=== PATIENT | male | born 1970 | race Caucasian/White ===

== ENCOUNTER 2020-06-03 09:49 | Emergency (ER) | payer BC, SELFPAY ==
--- NOTE | ~2020-06-03 | XR_ITS ---
EXAMINATION: XR chest 1V portable DATE: 06/03/2020 10:50 INDICATION: Cough. TECHNIQUE: A single frontal view of the chest was obtained on 2 radiographs. COMPARISON: None. FINDINGS: The chest demonstrates clear lungs without pneumonia, pleural effusion, or pneumothorax. Th e heart size is normal. IMPRESSION: 1. No acute cardiopulmonary disease. Reviewed, dictated and finalized at location A.
[2020-06-03 09:55] VITALS: BP 162/97; PULSE 64; RESP 20; TEMP 36.6; O2SAT 98
--- NOTE | 2020-06-03 10:54 | ED.GENADULT ---
HPI - General Adult General Chief complaint: Unspecified <Alexys Rock PA-C - Last Filed: 06/03/20 11:23> Stated complaint: short of breath, major test pending <Alexys Rock PA-C - Last Filed: 06/03/20 11:23> Time Seen by Provider: 06/03/20 10:11 <Alexys Rock PA-C - Last Filed: 06/03/20 11:23> Source: patient <ILSA Ashley Last Filed: 06/03/20 11:23> Mode of arrival: ambulatory <ILSA Ashley Last Filed: 06/03/20 11:23> Limitations: no limitations <ILSA Ashley Last Filed: 06/03/20 11:23> History of Present Illness HPI narrative: Patient is a 49-year-old male who presents to emergency department for evaluation of upper respiratory symptoms for the last week patient has had runny nose productive cough with started on a Z-Clint by primary care was tested for COVID and negative. Patient has been anxious about COVID on arrival to emergency department patient resting comfortably in the room in no distress notes in the last 2 nights he felt like there was fluid in his chest. Patient denies any fever chills nausea <Alexys Rock PA-C Last Filed: 06/03/20 11:23> Related Data Home medications: Home Medications Medication Instructions Recorded Confirmed azithromycin 06/03/20 <Alexys Rock PA-C - Last Filed: 06/03/20 11:23> Allergies/adverse reactions: Allergies Allergy/AdvReac Type Severity Reaction Status Date / Time No Known Allergies Allergy Verified 06/03/20 10:00 <Alexys Rock PA-C - Last Filed: 06/03/20 11:23> Review of Systems Review of Systems: All systems reviewed & are unremarkable except as noted in HPI and below <Aleyxs Rock PA-C - Last Filed: 06/03/20 11:23> [facility] Family History Family History: Family History (Updated 03/20/19 @ 09:36 by DOCTOR UNKNOWN) Other Hypertension <ILSA Ashley Last Filed: 06/03/20 11:23> Social History Social History: Social History Smoking status: Never smoker Alcohol intake: current Gender identity (if verbalized by the patient): Male <Alexys Rock PA-C - Last Filed: 06/03/20 11:23> Exam Narrative: Exam Narrative: GENERAL: Well-appearing, well-nourished, and in no acute distress. HEAD: Normocephalic, atraumatic. EYES: PERRLA and EOMI. ENT: Nares clear, no rhinorrhea or epistaxis. Mucous membranes moist. NECK: Supple. No adenopathy or masses. CHEST: Clear to auscultation. No respiratory distress. No wheezes rales or rhonchi HEART: Regular rate and rhythm. No murmur heard. Normal peripheral pulses. ABDOMEN: Soft, nontender, nondistended EXTREMITIES: Normal range of motion. No edema. SKIN: Warm, dry, no rash. NEURO: No focal deficits. Alert and oriented x3. PSYCH: Normal mood and affect. <Alexys Rock PA-C - Last Filed: 06/03/20 11:23> Course Course Emergency Course: Patient in the room in no distress aware of COVID results negative chest radiograph for pneumonia in the room with no <ILSA Ashley Last Filed: 06/03/20 11:23> Vital Signs Vital signs: Vital Signs Temperature 36.6 C 06/03/20 09:55 Pulse Rate 64 06/03/20 09:55 Respiratory Rate 20 06/03/20 09:55 Blood Pressure 162/97 H 06/03/20 09:55 Pulse Oximetry 98 06/03/20 09:55 Temperature 36.6 C 06/03/20 09:55 Pulse Rate 77 06/03/20 11:24 Respiratory Rate 18 06/03/20 11:24 Blood Pressure 153/108 H 06/03/20 11:24 Pulse Oximetry 96 06/03/20 11:24 <Alexys Rock PA-C - Last Filed: 06/03/20 11:23> Vital Signs Temperature 36.6 C 06/03/20 09:55 Pulse Rate 64 06/03/20 09:55 Respiratory Rate 20 06/03/20 09:55 Blood Pressure 162/97 H 06/03/20 09:55 Pulse Oximetry 98 06/03/20 09:55 Temperature 36.6 C 06/03/20 09:55 Pulse Rate 77 06/03/20 11:24 Respiratory Rate 18 06/03/20 11:24 Bl
[2020-06-03 11:24] VITALS: BP 153/108; PULSE 77; RESP 18; O2SAT 96
== END 2020-06-03 11:30 | disposition home or self-care (01) ==
PROVIDERS: Emergency Provider Emergency Medicine; PCP Internal Medicine
DX: J06.9 Acute upper respiratory infection, unspecified (principal)
CPT/HCPCS: 71045; 99283

== ENCOUNTER → 2021-08-03 14:07 | Outpatient (CLI) | payer OTHER, SELFPAY ==
--- NOTE | ~2021-08-03 | US_ITS ---
US thyroid INDICATION: Enlarged thyroid gland. TECHNIQUE: Real-time sonographic images of the thyroid gland were obtained. COMPARISON: No prior studies for comparison. FINDINGS: The right thyroid lobe measures 4.4 x 1.8 x 2.1 cm. The left thyroid lobe measures 4.7 x 1 .7 x 1.3 cm. There is normal echotexture and echogenicity throughout the thyroid gland. There is a so lid hypoechoic, wider than tall, smoothly marginated mass without calcifications, TR 4, measuring 1.3 x 1.1 x 1.3 cm. No masses identified in the left lobe. Normal vascular flow is present. IMPRESSION: 1. Moderately suspicious right thyroid mass measuring 1.3 cm. Follow-up ultrasound in 12 months vandana mmended. Reviewed, dictated and finalized at location A. IMPRESSION: 1. Moderately suspicious right thyroid mass measuring 1.3 cm. Follow-up ultras ound in 12 months recommended.
== END ==
PROVIDERS: PCP Internal Medicine; Visit Provider Internal Medicine
DX: E04.9 Nontoxic goiter, unspecified (principal)
CPT/HCPCS: 76536

== ENCOUNTER 2021-08-17 09:11 | Outpatient (CLI) | payer OTHER, SELFPAY ==
--- NOTE | ~2021-08-17 | US_ITS ---
EXAMINATION: US FNA w image guidance DATE: 08/17/2021 10:16 INDICATION: Nontoxic single thyroid nodule. TECHNIQUE: The procedure and its benefits and risks were discussed with the patient. Risks specifically discusse d included bleeding. The patient verbalized understanding of the risks and agreed to proceed. The nec k was prepped and draped in the usual sterile manner. 1% lidocaine was used for local anesthesia. 5 passes were made with a 25G needle into the lesion under ultrasound guidance. There were no immedia te complications. The patient understood to call the ordering physician for results after a week and a half and verbalized that understanding. FINDINGS: Grayscale ultrasound images demonstrate needles advanced into a 1.3 cm right thyroid nodule for biops y. IMPRESSION: 1. Ultrasound-guided fine needle aspiration of a right thyroid nodule. Reviewed, dictated and finalized at location A.
== END 2021-08-17 09:12 | disposition home or self-care (01) ==
PROVIDERS: PCP Internal Medicine; Visit Provider Otolaryngology
DX: E04.1 Nontoxic single thyroid nodule (principal); C80.1 Malignant (primary) neoplasm, unspecified
CPT/HCPCS: 10005; 88173; 88305

== ENCOUNTER 2021-08-18 10:08 | Outpatient (RCR) | payer OTHER, SELFPAY | END 2021-08-18 10:44 | disposition other institution (70) | LOC: ANHST 10:08 | PROVIDERS: PCP Internal Medicine; Visit Provider Otolaryngology | DX: R49.0 Dysphonia (principal) | CPT/HCPCS: 99199 ==

== ENCOUNTER → 2025-06-24 15:36 | Outpatient (REF) | payer OTHER, SELFPAY ==
--- NOTE | 2025-06-24 15:36 | S_PTH ---
PATIENT: Emery Jones LOC: [facility] #:[id number] AGE/SX: 55/M ROOM: RE06/24/[address]: Hayes Weir MD : 1970 BED: DIS: SPEC #: [id number] RECD: 06/25/25 08:01 STATUS: [facility] #: [id number] JAGDISH: 06/24/25 15:[address]: Hayes Weir DEPT: [facility] Surgical RECD BY: Victorina Domingo ENTERED: 06/25/25 08:01 SP TYPE: Surgical OTHR DR: Eve Gallardo PA-C Tissues: A - Cyst Procedures: Hematoxylin and Eosin Stain Gross and Microscopic Level 4
== END ==
LOC: ANHLAB 15:36
PROVIDERS: PCP Physician Assistant Medical; Visit Provider Plastic Surgery
DX: L72.8 Other follicular cysts of the skin and subcutaneous tissue (principal)
CPT/HCPCS: 88305

== ENCOUNTER → 2025-07-16 12:19 | Outpatient (REF) | payer OTHER, SELFPAY ==
--- NOTE | 2025-07-16 12:19 | S_PTH ---
PATIENT: Emery Jones LOC: [facility] #:[id number] AGE/SX: 55/M ROOM: RE07/16/[address]: Hayes Weir MD : 1970 BED: DIS: SPEC #: [id number] RECD: 07/16/25 12:51 STATUS: [facility] #: [id number] JAGDISH: 07/16/25 12:[address]: Hayes Weir DEPT: [facility] Surgical RECD BY: Victorina Domingo ENTERED: 07/16/25 12:51 SP TYPE: Surgical OTHR DR: Eve Gallardo PA-C Tissues: A - Cyst B - Cyst Procedures: Hematoxylin and Eosin Stain Gross and Microscopic Level 4
--- OUTSIDE RECORDS SUMMARY | 2025-07-16 13:39 | XMS_ITS | Clinical Summary ---
Author Organization [facility] Address [address] [place] [id number] Care Team Providers Care Drafter Topographical Name Role Phone Steve Marr MD Primary Care Provider [phone] Allergies Active Allergy Reactions Criticality Noted Date Comments Sulfa Antibiotics Hives,Rash Low 04/11/2021 Medications famotidine 20 MG tablet Take 1 tablet (20 mg total) by mouth 2 (two) times daily. 60 tablet 04/03/2020 Active azithromycin (ZITHROMAX) 250 MG tablet Take 2 tablets by mouth on day one then 1 daily for four days. 6 tablet 07/23/2022 Active fluticasone propionate (FLONASE) 50 MCG/ACT nasal spray 1-2 sprays by Nasal route daily. 1-2 sprays in each nostril qd; Start: 2 sprays in each nostril qd x1wk; Max: 2 sprays in each nostril/day 16 g 07/23/2022 Active albuterol sulfate HFA 108 (90 Base) MCG/ACT inhaler Inhale 2 puffs into the lungs every 6 (six) hours as needed for Wheezing. 6.7 g 10/17/2022 Active Social History Tobacco Use Types Packs/Day Years Used Date Smoking Tobacco: Never Smokeless Tobacco: Current Chew Tobacco Cessation:Ready to Q uit: Not Asked; Counseling Given: Not Answered Alcohol Use Standard Drinks/Week Comments Not Currently 0 (1 standard drink = 0.6 oz pur e alcohol) social Sex and Gender Information Value Date Recorded Sex Assigned at Not on file Legal Sex Male 3:05 AM CDT Gender Identity Not on file Sexual Orientation Not on file Last Filed Vital Signs Vital Sign Reading Time Taken Comments Blood Pressure 151/70 10/12/2024 4:16 PM [employer]NAGEMENT [employer]IAISON Pulse 77 10/12/2024 4:16 PM [employer] Temperature 36.3 C (97.4 F) 10/12/2024 4:16 PM [employer] Respiratory Rate 16 10/12/2024 4:16 PM [employer]NA[employer] Oxygen Saturation 97% 10/12/2024 4:16 PM [employer] Inhaled Oxygen Concentration - - Weight 128.4 kg (283 lb) 10/12/2024 4:16 PM [employer] Height 182.9 cm (6') 10/12/2024 4:16 PM [employer]EMENT [employer] Body Mass Index 38.38 10/12/2024 4:16 PM [employer] Plan of Treatment Health Maintenance Due Date Last Done Comments Colorectal Cancer Screening Colonoscopy (10 Years) 1971 Annual Physical 1974 Hepatitis C 1989 DTaP, Tdap and Td Vaccines ( 1 - Tdap) 1990 Hepatitis B Vaccines (1 of 3 - 19+ 3-dose series) 1990 Pneumococcal Vaccine: 50+ Ye ars (1 of 1 - PCV) 2021 Zoster Vaccines (1 of 2) 2021 COVID-19 Vaccine (1 - 2023-2 5 season) 2024 Meningococcal B Vaccine Aged Out No l onger eligible based on patient's age to complete this topic Meningococcal Vaccine Aged Out No martha moe eligible based on patient's age to complete this topic RSV Immunizations Under 20 Months Aged Out No longer eligible based on patient's age to complete this topic Insurance Care Teams Drafter Topographical Relationship Specialty Start Date End Date Steve Marr MD [address] [place] [address] [id number] PCP - General FAMILY PRACTICE 10/17/22
--- OUTSIDE RECORDS SUMMARY | 2025-07-16 13:39 | XMS_ITS | Clinical Summary ---
Author Organization [facility] Address [facility] [place] [address] Care Team Providers Care Coverstitch Binder Name Role Phone Thierry Emanuel MD Unavailable [phone] Ernst Biggs MD Unavailable [phone] Blaise Yo MD Primary Care Provider Susan Parkinson APPLIANCE ASSEMBLER Unavailable Liberty Gil PT Unavailable [phone] Hermilo Tesfaye MD Unavailable Mery Taylor MD Unavailable Allergies Active Allergy Reactions Criticality Noted Date Comments Sulfa (Sulfonamide Antibiotics) Hives Medium 11/2019 Medications omeprazole (PriLOSEC) 40 mg capsuleIndica tions:Treatme nt of Non-Bleeding Gastric Disorder Take 1 capsule (40 mg total) by mouth as needed 01/05/20 22 Active valACYclovir (VALTREX) 1 gram tablet Take 1 tablet (1,000 mg total) by mouth as needed (hsv) 11/18/19 23 Active chlorthalidon e (HYGROTON) 25 mg tablet Take 1 tablet (25 mg total) by mouth daily 90 tablet 3 07/04/20 24 Active atorvastatin (LIPITOR) 40 mg tablet Take 1 tablet (40 mg total) by mouth nightly 90 tablet 3 07/04/20 24 Active levothyroxine (SYNTHROID) 75 mcg tablet Take 1 tablet (75 mcg total) by mouth gunstock spray unit adjuster before breakfast Active fluticasone propionate (FLONASE) 50 mcg/actuation nasal spray SHAKE LIQUID AND USE 1 SPRAY IN EACH NOSTRIL TWICE DAILY 03/31/20 25 Active Actemra 162 mg/0.9 mL syringe INJECT 1 SYRINGE SUBCUTANEOUSLY WEEKLY 3.6 mL 07/10/20 25 Active Actemra 162 mg/0.9 mL syringe INJECT 1 SYRINGE SUBCUTANEOUSLY WEEKLY 3.6 mL 05/29/20 25 2024 Discontinued Active Problems Problem Noted Date Diagnosed Date Encounter for weight management 06/04/2025 Metabolic syndrome 06/04/2025 Class 2 severe obesity due t o excess calories with serious comorbidity and body mass index (BMI) of 39.0 to 39.9 in adult 06/04/2025 Essential hypertension 04/04/2024 Acute medial meniscus tear of right knee 023 Pain of left thumb 08/25/2022 Assessment & Plan (08/25/2022 4:05 PM CDT): New complaint of left thumb pain possible with component of deQuervain tenosynovitis. Advised continued Toradol use with transition to naproxen as above. Discussed trying SPICA splint and to minimize overuse. He reports he has a golf tournament in [place] on 09/08. Recommended monitoring for improvement between now and then as could consider playing but that could re-worsen symptoms. Hematuria 04/21/2022 Assessment & Plan (04/21/2022 12:43 PM CDT): Recommended discussion with Urology Chronic left-sided low back pain without sciatic a 04/21/2022 Assessment & Plan (04/21/2022 12:44 PM CDT): Has been experiencing left-sided lower back pain without radicular symptoms. Symptoms exacerbated with standing for prolonged periods of time. Has TTP over the left lower back. Suspect musculoskeletal. Will send to physical therapy. Chronic pain of both shoulders 04/21/2022 Assessment & Plan (04/21/2022 12:45 PM CDT): Experiences episodic discomfort in the bilateral shoulders, which most recently affected his right shoulder after golfing. No significant shoulder complaints at today's visit. Nonetheless, will send to physical therapy. Uses continuous positive air way pressure (CPAP) ventilation at home 09/21/2021 Sleep apnea 09/20/2021 Malignant neoplasm of thyroid gland 09/01/2021 Abnormal urinalysis 08/25/2021 Assessment & Plan (08/25/2021 12:44 PM CDT): Recent urinalysis 08/2021 revealed WBC 6-10, RBC 3-5, 1+ calcium oxalate crystals, 21-50 hyaline casts, 3+ proteinuria, 1+ bilirubin, 2.0 urobilinogen. Did not reflex to culture. Given his urinary symptoms, will recheck UA and recommended fu with urology to discuss further. Encounter for long-term (current) use of medicat ions 07/14/2021 Assessment & Plan (08/25/2022 4:03 PM CDT): Negative hepatitis-B/C 03/25/2021 Negative T spot 07/2021 Assessment & Plan (08/02/2022 12:27 PM CDT): Negative hepatitis-B/C 03/25/2021 Negative T spot 07/2021 Assessment & Plan (06/16/2022 12:13 PM CDT): Negative hepatitis-B/C 03/25/2021 Negative T spot 07/2021 Assessment & Plan (04/21/2022 12:41 PM CDT): Negative hepatitis-B/C 03/25/2021 Negative T spot 07/2021 Assessment & Plan (03/11/2022 12:50 PM CDT): Negative hepatitis-B/C 03/25/2021 Negative T spot 07/2021 Assessment & Plan (01/27/2022 3:57 PM CDT): Negative hepatitis-B/C 03/25/2021 Negative T spot 07/2021 Assessment & Plan (11/25/2021 1:24 PM HOG HANDLER): Negative hepatitis-B/C 03/25/2021 Negative T spot 07/2021 cxr still pending Assessment & Plan (08/25/2021 11:04 AM CDT): Negative hepatitis-B/C 03/25/2021 Will obtain T spot and chest x-ray Assessment & Plan (07/14/2021 12:09 PM CDT): Negative hepatitis-B/C 03/25/2021 Will obtain T spot and chest x-ray Encounter for follow-up surveillance of prostate cancer 06/30/2021 Weight gain 06/18/2021 Increased frequency of urination 06/18/2021 Muscle weakness 06/18/2021 Screening for colon cancer 06/08/2021 Overview (06/08/2021): Added automatically from request for surgery [id number] Rectal bleeding 06/08/2021 Overview (06/08/2021): Added automatically from request for surgery [id number] Abnormal urine color 04/13/2021 Assessment & Plan (04/13/2021 1:13 PM CDT): Will check UA. Rheumatoid arthritis involvi ng multiple sites with positive rheumatoid factor 03/25/2021 Overview (04/14/2021): US Right hand/wrist 04/06/21: 1) Mild synovial thickening of the dorsal wrist with grade 1 power Doppler 2) Grade 2 power Doppler of the radial scaphoid joint 3) Moderate synovial thickening of the 4th MCPJ and 2nd and 3rd PIPJ 4) Marked synovial thickening of the 3rd MCPJ 5) Mild CMC spurring These findings on examination are non-specific and will have to be correlated clinically. X-ray 04/05/2021: Right hand: Mild scattered degenerative changes without other concerning findings Right foot: Mild scattered degenerative changes, mild soft tissue swelling over the dorsum of the foot, small plantar calcaneal spur and small Achilles tendon insertions per Left foot: Mild scattered degenerative changes most prominent at the 1st MTP joint, mild soft tissue swelling over the dorsum of the foot, moderate plantar calcaneal spur, small Achilles tendon spur Right knee: Mild tibial spine spurring, medial and lateral joint space maintained, no effusion left knee: Mild tibial spine spurring, medial and lateral joint space maintained, notes a fusion minimal patellar spur Assessment & Plan (08/25/2022 4:03 PM CDT): Seropositive RA dx 02/2021 treated initially with methotrexate and addition of Humira but was unable to obtain low disease activity without steroids. He was eventually changed to Rinvoq after our office visit 02/2022 and follow up 04/2022 was noting significant improvement on the combination of MTX 20 and Rinvoq. Unfortunately, due to ongoing compliance issues with methotrexate and eventually patient reported intolerance MTX was self discontinued 07/2022. Our last follow up 07/2020 we started LEF 20 mg daily which he reports having taken for the last 3 weeks. Today he returns with flare in wrists and base of left thumb that may in part be mechanically driven; however he has noted increased pain/symptoms since discontinuing methotrexate and has not given leflunomide enough time to take effect. Given his significant side effects with prednisone he was instructed to use Toradol 1 tablet once to twice daily for 3-5 days and could then resume Naproxen 500 mg prn. He will continue rinvoq and LEF 200 mg daily. Recent labs from 08/02 off methotrexate and CMP from 08/25 on LEF x 3 weeks were reviewed today with patient showing continued mild ALT elevation. It is uncertain given this stability if this is related to medication at this time as could be due to hepatic steatosis but will require continued monitoring. Assessment & Plan (08/02/2022 12:27 PM CDT): CDAI 15. Ray soft methotrexate several weeks prior due to side effects. Has remained on Rinvoq with naproxen 500 mg b.i.d. p.r.n.. Joints to remain much improved on Rinvoq, although has had some increased discomfort in the hands/feet, which seems to have worsened since stopping methotrexate. Given moderate CDAI, discussed additional treatment with leflunomide to replace methotrexate. He was amenable to this. Discussed potential side effects including but not limited to increased infection, diarrhea, blood count abnormalities, and/or rash. Will begin leflunomide 20 mg daily. Otherwise, will continue Rinvoq 50 mg daily naproxen 500 mg b.i.d. p.r.n.. Routine labs today. Follow-up 4 weeks. Sooner if needed. Assessment & Plan (06/16/2022 12:16 PM CDT): CDAI 20. He self discontinued methotrexate 1 month prior due to lack of refills and wanted to trial off the medication. Has had some increased discomfort in the hands and knees predominantly with a.m. stiffness for few minutes. More tender and swollen joints on exam, as above. Will have him resume methotrexate 10 mg weekly x2 weeks followed by increasing to 15 mg weekly and continue FA 2 mg daily. Otherwise, continue Rinvoq 15 mg daily and naproxen 500 mg b.i.d. p.r.n.. Routine labs today. Follow-up 6 weeks. Sooner if needed. If symptoms persist at next visit, will increase methotrexate back to 20 mg weekly, which was best controlled at this dose. Assessment & Plan (04/21/2022 12:45 PM CDT): CDAI 7. Since last visit, has begun Rinvoq and tolerated this well. Has noted improvement in his joint symptoms with minimal complaints at today's visit. Has been tapered off prednisone for 1 month. Minimal peripheral joint complaints with minimal synovitis on exam, as above. Appears adequately controlled. He has strong polypharmacy concerns and he would like to trial reducing/tapering off methotrexate if possible. For this reason, will reduce methotrexate to 15 mg weekly, FA 1 mg daily. Will continue Rinvoq 15 mg daily. Will have him take naproxen 500 mg b.i.d. p.r.n. at times when joints are more bothersome. With any new or worsened symptoms, will increase methotrexate back to 20 mg weekly at that point. Recent labs reviewed with patient. Follow-up 2 months. Sooner if needed. Seen with Dr. Biggs. >90 minutes spent reviewing patient's records, gathering pertinent medical history, performing physical exam, counseling/educating patient about diagnosis and treatment plan, and documenting today's office visit in the EMR. Assessment & Plan (03/11/2022 2:48 PM CDT): CDAI 23. Jt continues to have chronic joint complaints, which do require prednisone, which has become less beneficial. Presented to the ER this Monday due to severe left shoulder pain and was given Toradol with resolution of symptoms. Continues to note chronic pain, stiffness, swelling that is most notable in the bilateral hands/wrists. Synovitis does persist on exam. Does not appear adequately controlled. Has persistent chronic joint pain and swelling with frequent flares exacerbating symptoms. Will stop Humira and begin approval for Rinvoq 15 mg daily. Discussed potential side effects of the medication, including but not limited to increased risk of infection, blood clots, headache, diarrhea, bowel perforation, and/or lymphoma risk. Given samples today. Will continue methotrexate 20 mg weekly, FA 2 mg daily. Ideally, will avoid steroids at this time due to weight gain and has become less beneficial. Given his previous response with NSAIDs along with strong recent cyst response to Toradol, will prescribe naproxen 500 mg b.i.d.. He does take omeprazole 40 mg daily. He is to notify us with any worsened GERD symptoms. Discussed side effects of the medication, including but not limited to GI upset, kidney, and ulcers. Has Ketoralac prescribed at his recent ER visit, which he has been advised to take only with flares. Recent labs reviewed. ALT was elevated. Will monitor this and recheck with labs at next visit. Follow-up 6 weeks. Sooner if needed. Seen with Dr. Biggs. >90 minutes spent reviewing patient's records, gathering pertinent medical history, performing physical exam, counseling/educating patient about diagnosis and treatment plan, and documenting today's office visit in the EMR. Assessment & Plan (01/27/2022 3:56 PM CDT): CDAI 17. Since last visit, Jt has tapered his prednisone to 2.5 mg daily and has been on Humira x4 doses. Does continue to have some persistent joint pain, stiffness, swelling in the bilateral hands with some active synovitis on exam. Would like to allow Humira more time to take effect. Will taper off prednisone at this time given weight gain concerns. Will continue methotrexate 15 mg weekly, FA 2 mg daily, Humira q.2 weeks subcutaneous injections. Routine labs today. Follow-up 3 months. Sooner if needed. Assessment & Plan (11/25/2021 1:28 PM HOG HANDLER): CDAI 42. Since last visit, Jt has discontinued Humira and tapered prednisone to 2.5 mg daily. Presents in a flare of his RA with significant increased pain, stiffness, swelling that is most notable in hands/wrists pain in the right TMJ. Has profound swelling and tenderness on exam. Appears to be in a flare of his inflammatory arthritis. Will resume Humira q.2 weeks subcutaneous injections. We did extensively discuss risk with Humira at today's visit. Initial Humira studies did display possible mild increased risk for cancer, although studies since that time have refuted this. Have advised that he not discontinue our rheumatologic medications without discussing this further with us in the future. Otherwise, will maintain on methotrexate 15 mg weekly, FA 2 mg daily. Prescribe prednisone taper from 20 mg daily by 5 mg q5 days until he reaches 5 mg daily, which will maintain at this dose until his next visit. Did receive a Humira injection in office today. Routine labs today. Follow-up 2 months. Sooner if needed. Seen with Dr. Biggs. Of note, we have prescribed a Medrol Dosepak to be used in the case of an acute flare. Assessment & Plan (08/25/2021 12:45 PM CDT): CDAI 15. Since last visit, he has begun Humira x1 injection and tolerated this well. Has tapered prednisone to 10 mg daily. Overall, notes that joints are doing fairly well at this time with minimal complaints. Would like taper off prednisone SUDHIR given concerns with side effects, including weight gain. Does continue to have some synovitis on exam. Will allow the Humira more time to take effect. Will continue Humira q.2 weeks subcutaneous injections. Continue methotrexate 15 mg weekly, FA 3 mg daily. Begin to prednisone by 2.5 mg every 2-4 weeks until off. Routine labs today. Follow-up 3 months. Sooner if needed. Seen with Dr. Biggs. Assessment & Plan (07/14/2021 12:08 PM CDT): CDAI 19. After last visit completed this positive for COVID-19, although he never developed any symptoms. With that said, he did remain off methotrexate for 1 dose. His joints overall were doing fairly well, although has experienced some increased joint pain, stiffness, swelling in the bilateral hands predominantly recently. Does have synovitis persistent on exam today. Given his concerns for side effects methotrexate, I am hesitant to further increase this, so will maintain on methotrexate 15 mg weekly. Continue folic acid 3 mg daily. Given his persistent moderate CDAI while on prednisone, would like to begin approval for Humira q.2 weeks subcutaneous injections. Patient advised of the side effects of the medication, including but not limited to increase risk of infection, rash, injection site reaction. Given handout discussing the medication. Will maintain on prednisone 10 mg daily at present with hopes of tapering at next visit. Routine labs today, including T spot along with chest x-ray. Follow-up 6 weeks. Sooner if needed. Assessment & Plan (06/18/2021 12:47 PM CDT): CDAI = 6 Today his CDAI is improving and is low, joints have decreased pain. He has tapered prednisone to 15mg since last week and has now been on methotrexate 15mg for 2 weeks. He came in today due to multiple concerning symptoms including 20+ weight gain in the last 2 months, generalized weakness, increased thirst/urination, vision changes, teeth sensitivity. His strength on exam is 5/5 but discussed that sense of muscle weakness can be due to steroid myopathy. Will check muscle enzymes with labs. Will also check for DM2 in light of the polydipsia/polyuria. We did a UA dip in house which was neg for glucose and ketones. He may also need workup for diabetes insipidus. Should try to do low impact physical activity daily to prevent further weakness and to help with weight. Will lower prednisone to 10mg daily and continue current dose of mtx, folic acid (2mg). Advised seeing dentist due to tooth sensitivity. F/u [address] Lopez since Edward and Dr. Biggs out of office today. Assessment & Plan (06/08/2021 1:12 PM CDT): CDAI 18. Patient did not begin methotrexate after last visit, as he was experiencing intermittent episodes of hematochezia, which have resolved. He remains at prednisone 20 mg daily and has noted improvement in joint symptoms. Does continue to experience discomfort across few joints in the bilateral hands, which he rates at a 5/10. Synovitis does persist on exam. Will proceed with methotrexate 15 mg weekly, FA 1 mg daily. Patient advised of the side effects of the medication, including but not limited to increased risk of infection, GI upset, increased LFTs, mouth sores, rash, diarrhea, and/or blood count abnormalities. Will taper prednisone to 15 mg daily until next visit and ideally would like to begin to taper off at that point. Follow-up 4 weeks. Sooner if needed. Seen with Dr. Biggs. Given his degree of inflammation while on prednisone, do suspect that the will likely need rapid movement to biologics, which was discussed today. >30 minutes spent reviewing patient's records, gathering pertinent medial history, performing physical exam, counseling/educating patient about diagnosis and treatment plan, and documenting today's office visit in the EMR. Assessment & Plan (04/13/2021 1:14 PM CDT): He returns today due to a flare that occurred this last weekend. After golfing, he noted significant pain, swelling in the right knee and continues to note persistent joint pain, stiffness, swelling in the bilateral hands/wrists. Denies any major benefit with Kenalog IM injection at last visit. He did take prednisone 20 mg daily x3 days, although subsequently discontinued over the past 2 days. He presented to the ER due to significant right knee pain, swelling and did receive Toradol injection and was prescribed indomethacin. He stopped indomethacin after 1 dose due to restlessness, sense of doom. He continues to possess swelling across several joints, including the R knee. Upon informed consent, Dr. Biggs attempted aspiration on the right knee and obtained 3 cc of fluid, which was sent for crystal analysis and cell count. 40 mg kenalog was subsequently injected into the R knee and patient tolerated well. Will have him resume prednisone 20 mg daily x7 days followed by 10 mg daily until next visit. In the meantime, recommended against NSAID use due to concern for GI intolerance with the combination of prednisone. Ok to take otc tylenol. Likely consider treatment with methotrexate for steroid sparing therapy at next visit, although awaiting completion of radiation. Keep scheduled follow-up on 06/08. Sooner if needed. Seen with Dr. Biggs. Assessment & Plan (04/06/2021 10:27 AM CDT): 50 yoM with recent labs displaying pos RF/CCP presents with joint pain, swelling, stiffness in the ambar hands, knees, feet. Difficulty making a fist. Considerable synovitis on exam. Symptoms, serologies support seropositive RA diagnosis. Oncologist would like us to avoid mtx due to interaction with radiation therapy. Had initially considered using leflunomide, although patient does note significant diarrhea since beginning radiation, so would like to defer this. Is scheduled to complete radiation in late April. We have not received his x-ray report back yet, although disc was reviewed in office today with preliminary results displaying no obvious erosive changes without evidence for signficant OA changes in the hands, feet. Mild patellofemoral OA was noted in the knees with adequate joint space of the medial/lateral compartments. Preliminary US results did not reveal any erosive changes. Due to burden of disease, will administer kenalog 100 mg IM injection, in office, today. Will also have him begin prednisone 20 mg daily x 7 days followed by 10 mg daily until next visit. Patient was advised of the potential side effects of the medication, including but not limited to increased blood sugar, weight gain, avascular necrosis, glaucoma, cataracts, and/or osteoporosis. Will likely consider treatment with mtx for steroid sparing therapy at next visit, as radiation should be completed at that time. Fu 8 weeks. Sooner if needed. Seen with Dr. Biggs. Assessment & Plan (03/25/2021 3:30 PM CDT): 50 yoM with recent labs displaying pos RF/CCP presents with joint pain, swelling, stiffness in the ambar hands, knees, feet. Difficulty making a fist. Considerable synovitis on exam. Symptoms, serologies support seropositive RA diagnosis. Oncologist would like us to avoid mtx due to interaction with radiation therapy. Could consider leflunomide at his next follow up. Fu 2 weeks. Sooner if needed. Seen with Dr. Biggs. Due to burden of disease, will administer kenalog 100 mg IM injection, in office, at time of hand US. Patient was advised of the potential side effects of the medication, including but not limited to increased blood sugar, weight gain, avascular necrosis, glaucoma, cataracts, and/or osteoporosis. Hypersomnia 12/10/2020 Snoring 12/10/2020 Dry mouth 12/10/2020 Prostate cancer 07/14/2020 Cancer Staging:Pathologic stage from 08/07/2020:Stage IIIA(pT2, pN0, cM0, PSA: 24, Grade Group: 3) - Signed by Odilia Carrillo MD on 11/12/2020 Overview (07/14/2020): Added automatically from request for surgery [id number] SOB (shortness of breath) Overview (02/01/2022): Chest x-ray 01/28/2022: wnl PFT interpretation 01/31/2022: Normal FVC, normal FEV1, FEV1/FVC increased. TLC is decreased, residual volume is decreased, DLCO is normal, mild restrictive ventilatory pattern Assessment & Plan (04/21/2022 12:43 PM CDT): Chest x-ray 01/28/2022: wnl PFT interpretation 01/31/2022: Normal FVC, normal FEV1, FEV1/FVC increased. TLC is decreased, residual volume is decreased, DLCO is normal, mild restrictive ventilatory pattern Continues to note shortness of breath with mild exertion. At this time, suspect this is most likely due to deconditioning/body habitus, which was discussed. Has noted dietary changes since last visit. Do suspect weight gain concerns will continue to improve once off prednisone. Have extensive discussed exercise diet changes over the last 3 visits. He does anticipate beginning an exercise program. Assessment & Plan (03/11/2022 2:47 PM CDT): Chest x-ray 01/28/2022: wnl PFT interpretation 01/31/2022: Normal FVC, normal FEV1, FEV1/FVC increased. TLC is decreased, residual volume is decreased, DLCO is normal, mild restrictive ventilatory pattern Continues to note shortness of breath with mild exertion. At this time, suspect this is most likely due to deconditioning/body habitus, which was discussed. We did spend extensive time discussing exercise last visit, which has not proceeded with. Rediscussed today. Has noted dietary changes since last visit. Has lost 6 lb in the last 2 months. Do suspect weight gain concerns will continue to improve once off prednisone. Assessment & Plan (01/27/2022 3:58 PM CDT): Continues to note shortness of breath with mild exertion along with generalized unwell feeling and weight gain. Suspect some of his symptoms may be due to deconditioning. Did discuss dietary changes including Mediterranean diet, exercise and will taper off prednisone at this time. Given chest x-ray ordered PFT to evaluate further given his shortness breath with mild exertion. Encounters Date Type Department Care Team Description 05/12/2025 6:30 AM CDT Telemedicine [facility] [place] [facility] [address] [facility] [address] [place] [address] Marty Loya MD Primary osteoarthritis of right knee (Primary Dx); Chronic pain of right knee 04/25/2025 12:12 PM CDT - 04/25/2025 11:59 PM CDT Hospital Encounter [facility] [id number] [place] [address] Right knee pain, unspecified chronicity Discharge Disposition: Discharge to home or self care 04/25/2025 11:40 AM CDT Office Visit [facility] [address] [place] [address] [address] [place] [address] Henry Nelson MD Right knee pain, unspecified chronicity (Primary Dx) 04/16/2025 Telephone [facility] [address] [place] [address] [address] [place] [address] Gisela Alarcon NP from Last 3 Months Surgical History Surgery Date Site/Laterality Comments WRIST FRACTURE SURGERY 11/13/1985 - 11/12/1986 Left PROSTATECTOMY 08/10/2020 NECK DISSECTION 09/24/2021 with Thyroidectomy COLON BIOPSY 11/13/2020 - 11/12/2021 MENISCUS SURGERY 09/13/2023 - 10/12/2023 Right EPIDURAL INJECTION LEFT CERVICAL THORACIC 1 LEVEL 03/07/2024 Left Medical History Medical History Date Comments Hypertension GERD (gastroesophageal reflux disease) well controlled Prostate cancer (HCC) 2019 surgery & radiation Sleep apnea CPAP Motion sickness Hypercholesteremia Thyroid disease 2020 thyroid cancer, surgery only Rheumatoid arthritis (HCC) Neuropathy ambar LE Family History Medical History Relation Name Comments Arthritis Father Hypertension Father Lung cancer Maternal Grandmother Lung cancer Paternal Grandmother Relation Name Status Comments Father Maternal Grandmother Paternal Grandmother Social History Tobacco Use Types Packs/Day Years Used Date Smoking Tobacco: Never Passive Smoke Exposure: Never Smokeless Tobacco: Current Chew Tobacco Cessation:Ready to Q uit: Not Asked; Counseling Given: Not Answered Alcohol Use Standard Drinks/Week Comments Yes 10 (1 standard drink = 0.6 oz pu re alcohol) 6-7 beers every 1-2 weeks Humiliation, Afraid, Rape, and Kick questionnair e Answer Date Recorded Within the last year, have y ou been afraid of your partner or ex-partner? No 11/12/2020 Within the last year, have y ou been humiliated or emotionally abused in other ways by your partner or ex-partner? No Within the last year, have y ou been kicked, hit, slapped, or otherwise physically hurt by your partner or ex-partner? No 11/12/2020 Within the last year, have y ou been raped or forced to have any kind of sexual activity by your partner or ex-partner? No 11/12/2020 Social Connection and Isolation Panel Answer Date Recorded In a typical week, how many times do you talk on the phone with family, friends, or neighbors? More than three times a week 11/12/2020 How often do you get togethe r with friends or relatives? Once a week 11/12/2020 How often do you attend chur ch or congregational services? Never 11/12/2020 Do you belong to any clubs o r organizations such as holiness groups, unions, fraternal or athletic groups, or school groups? No 11/12/2020 How often do you attend meet ings of the clubs or organizations you belong to? Never 11/12/2020 Are you , , di vorced, , never , or living with a partner? 11/12/2020 AUDIT-C Answer Date Recorded Frequency of Alcohol Consumption Not on file 06/18/2024 Q2: How many drinks containi ng alcohol do you have on a typical day when you are drinking? Patient does not drink Frequency of Binge Drinking Not on file 04/2024 Overall Financial Resource Strain (CARDIA) Answe r Date Recorded How hard is it for you to pa y for the very basics like food, housing, medical care, and heating? Not hard at all 11/12/2020 [facility] - Occupational Stress Questionnaire Answer Date Recorded Do you feel stress - tense, restless, nervous, or anxious, or unable to sleep at night because your mind is troubled all the time - these days? Rather much 11/12/2020 Exercise Vital Sign Answer Date Recorde d On average, how many days pe r week do you engage in moderate to strenuous exercise (like a brisk walk)? 0 days 11/12/2020 On average, how many minutes do you engage in exercise at this level? 0 min 11/12/2020 Hunger Vital Sign Answer Date Recorded Within the past 12 months, y ou worried that your food would run out before you got the money to buy more. Never true 11/12/20 20 Within the past 12 months, t he food you bought just didn't last and you didn't have money to get more. Never true 11/12/2020 PRAPARE - Transportation Answer Date Re corded In the past 12 months, has l ack of transportation kept you from medical appointments or from getting medications? No 10/15 In the past 12 months, has l ack of transportation kept you from meetings, work, or from getting things needed for daily living? No 11/12/2020 Personal Safety Answer Date Recorded Have you ever been in or are you currently in a harmful physical or emotional relationship or is someone making you feel afraid or unsafe? Denies 06/05/2024 Education Answer Date Recorded What is the highest level of school you have completed or the highest degree you have received? Some college, no degree 11/12/2020 Sex and Gender Information Value Date Recorded Sex Assigned at Not on file Legal Sex Male 12:38 PM CDT Gender Identity Male 07/27/2021 3:15 PM CDT Sexual Orientation Not on file Occupation Industry Job Start Date Job End Date Unemployed Not on file Not on file Not on file Obstetrics History Last Filed Vital Signs Vital Sign Reading Time Taken Comments Blood Pressure 132/87 03/13/2025 8:38 AM CDT Pulse 63 03/13/2025 8:38 AM CDT Temperature 36.7 C (98.1 F) 03/13/2025 8:38 AM CDT Respiratory Rate 24 01/27/2025 11:55 AM CDT Oxygen Saturation 97% 03/13/2025 8:38 AM CDT Inhaled Oxygen Concentration - - Weight 131.1 kg (289 lb) 04/09/2025 3:38 PM CDT Height 182.9 cm (6') 04/09/2025 3:38 PM CDT Body Mass Index 39.2 04/09/2025 3:38 PM CDT Plan of Treatment Health Maintenance Due Date Last Done Comments Depression Screening 1971 DTaP/Tdap/Td Vaccine (1 - Tdap) 1982 Hepatitis B Screening 1989 Regular Well Visit/Exam 18-64 1989 Pneumococcal vaccine <65 (1 of 2 - PCV) 1990 Zoster Vaccine (1 of 2) 1990 Influenza Vaccine (#1) 2025 Prostate Cancer Screening-PSA 01/16/2027, 09/11/2024, 06/05/2024, Additional history exists Colon Cancer Screening-Colonoscopy 07/28/20312020 Hepatitis C Screening Completed 01/09/2023, 021 Procedures Procedure Name Priority Date/Time Associated Diagnosis Comments XR KNEE RIGHT 3 VIEWS Schedule Routine, Read Routine (OP Routine) 04/25/2025 12:21 PM CDT Right knee pain, unspecified chronicity PSA DIAGNOSTIC Routine 01/16/2025 1:20 PM HOG HANDLER Prostate cancer (HCC) HEPATITIS C ANTIBODY Routine 01/09/2023 10:02 AM HOG HANDLER Rheumatoid arthritis involving shoulder, unspecified laterality, unspecified whether rheumatoid factor present (HCC) COLONOSCOPY 07/28/2021 9:05 AM CDT from Last 3 Months or Most Recently Relevant to Health Maintenance Results * XR Knee Right 3 Views (04/25/2025 12:21 PM CDT) Anatomical Region Laterality Modality Lower Extremities, Knee Right Computed Radiography 04/25/2025 1:45 PM CDT Impressions 04/25/2025 1:45 PM CDT Moderate to severe patellofemoral compartment predominant tricompartmental right knee osteoarthritis. Electronically signed by: Yonatan Jo M.D. Narrative 04/25/2025 1:45 PM CDT EXAMINATION: XR KNEE RIGHT 3 VIEWS HISTORY: Right knee pain COMPARISON: 07/08/2024 FINDINGS: There is lateral patellar subluxation bilaterally. Moderate to severe patellofemoral compartment predominant tricompartmental knee osteoarthritis. Small knee effusion. No acute fracture Procedure Note Yonatan Jo MD - 04/25/2025 EXAMINATION: XR KNEE RIGHT 3 VIEWS HISTORY: Right knee pain COMPARISON: 07/08/2024 FINDINGS: There is lateral patellar subluxation bilaterally. Moderate to severe patellofemoral compartment predominant tricompartmental knee osteoarthritis. Small knee effusion. No acute fracture IMPRESSION: Moderate to severe patellofemoral compartment predominant tricompartmental right knee osteoarthritis. Electronically signed by: Yonatan Jo M.D. Henry Nelson MD IMG XR PROCEDURES Final Result * PSA diagnostic (01/16/2025 1:20 PM HOG HANDLER) PSA-Total <0.02 <=3.90 ng/mL Comment: Interpretive Data AGE SEX REFERENCE INTERVAL 0 minutes-150 years Female None 0 minutes-49 years Male None 50-59 years Male 0-3.90 60-69 years Male 0-5.40 70-79 years Male 0-6.20 80-150 years Male 0-6.20 The Basilia PSA Total assay procedure was used. Results from different manufacturers or methods may not be comparable. Serial testing should be performed using the same method. Current interpretive data last revised 22. Blood 01/16/2025 1:20 PM HOG HANDLER 01/16/2025 3:36 PM HOG HANDLER us Susan Parkinson APPLIANCE ASSEMBLER LAB BLOOD ORDERABLES F inal Result [facility] [place] [address] * Hepatitis C antibody (01/09/2023 10:02 AM HOG HANDLER) Hep C Ab Nonreactive Nonreactive [facility] Comment: Interpretive Data Nonreactive: Antibodies to HCV not detected. Does NOT exclude the possibility of recent exposure to HCV. Equivocal: Equivocal for HCV antibodies. Supplemental molecular testing will be automatically performed to determine infection status in accordance with current CDC screening recommendations. Reactive: Positive for HCV antibodies. This may represent current or past HCV infection. Supplemental molecular testing will be automatically performed to determine current infection status in accordance with current CDC screening recommendations. Interpretive data was last revised on 2020. Testing performed by: [facility], [address] [place] [address]., [id number] Blood 01/09/2023 10:0 2 AM HOG HANDLER 01/09/2023 12:04 PM HOG HANDLER us Glory Stone MD LAB MICROBIOLOGY - GENERAL ORDERABLES Final Result Performing Organization Address [facility]/ZIP Co de Phone Number [facility] [address] [facility] [place] [address] * COLONOSCOPY (07/28/2021 9:05 AM CDT) Anatomical Region Laterality Modality Other Narrative Procedure Note Tima Millan MD - 07/28/2021 9:05 AM CDT [facility] Patient Name: Ayala Gibson Procedure Date: 07/28/2021 9:05 AM Date of : 1970 Admit Type: Outpatient Age: 50 Gender: Male Attending MD: Tima Millan M.D. Room: [facility] ENDOSCOPY ROOM 02 Note Status: Finalized Procedure: Colonoscopy Indications: Screening for colorectal malignant neoplasm, Thisis the patient's first colonoscopy Referring MD: Blaise Yo MD Providers: Tima Millan M.D. Medicines: Monitored Anesthesia Care Complications: No immediate complications. Estimated Blood Loss: Estimated blood loss was minimal. Procedure: Pre-Anesthesia Assessment: - Immediately prior to administration ofmedications, the patient was re-assessed for adequacy to receive sedatives. The benefits, risks and alternatives of theprocedure and sedation were discussed and informed consentwas obtained. All questions were answered. Please referto the signed informed consent document in the medical record. The scope was passed under direct vision.The [id number] was introduced through the anusand advanced to the the terminal ileum. The colonoscopy was performed without difficulty. The patient tolerated the procedure well. The quality of thebowel preparation was evaluated using the BBPS (BostonBowel Preparation Scale) with scores of: Right Colon = 3, Transverse Colon = 3 and Left Colon = 3 (entiremucosa seen well with no residual staining, smallfragments of stool or opaque liquid). The total BBPS score equals 9. The bowel preparation used waspolyethylene glycol (PEG). Bowel prep was administered using a split dose. Findings: The terminal ileum appeared normal. A 5 mm polyp was found in the cecum. The polyp was sessile. The polyp was removed with a jumbo cold forceps. Resection and retrieval were complete. Non-bleeding internal hemorrhoids were found during retroflexion. The hemorrhoids were mild. Impression: - The examined portion of the ileum was normal. - One 5 mm polyp in the cecum. Resected andretrieved. - Non-bleeding internal hemorrhoids. Recommendation: - Discharge patient to home (ambulatory). - Patient has a contact number available for emergencies. The signs and symptoms of potential delayed complications were discussed with thepatient. Return to normal activities tomorrow. Written discharge instructions were provided to thepatient. - Await pathology results. - Repeat colonoscopy in 5 years for surveillance. - If you have issues please call Tierra (GEOLOGICAL SAMPLE TESTER) at [phone]. If it is after hours, please call [phone] and ask for the GI fellow continuous crusher operator. Attending Participation: I personally performed the entire procedure. Electronically by Tima Millan M.D. Tima Millan M.D. 07/28/2021 10:16:27 AM . Number of Addenda: 0 Note Initiated On: 07/28/2021 9:05 AM Recognized by the [employer] for promoting quality in endoscopy Tima Millan MD ENDOSCOPY PROCEDURES Jannette l Result from Last 3 Months or Most Recently Relevant to Health Maintenance Insurance [facility] CHOICE PLUS [facility] CHOICE PLUS [facility] CHOICE PLUS [facility] CHOICE PLUS [facility] CHOICE PLUS Advance Directives For more information, please contact: [phone] * Full Code (Latest Code Status on File) Date Activated Date Inactivated Comments 07/28/2021 9:37 AM 07/28/2021 2:52 PM * Full Code Date Activated Date Inactivated Comments 08/07/2020 6:22 PM 08/08/2020 7:37 PM Care Teams Coverstitch Binder Relationship Specialty Start Date End Date Blaise Yo MD [address] [place] [address], [place] [address] PCP - General 02/25/21 Thierry Emanuel MD Referring Physician Urology 11/12/20 Ernst Biggs MD [address] [place] [address] Consulting Physician Rheumatology 02/18/21 Susan Parkinson NP [address] [facility] [address] [place], [place] [id number] Nurse Practitioner Nurse Practitioner 06/30/21 [place] [address] [place] [address] Physical Therapist Physical Therapy 02/21/23 [place] [address] [place] [address] Radiation Oncologist Radiation Oncology 06/02/23 Mery Taylor MD [address] [place] [address] Endocrinology Diabetes & Metabolism 03/13/25
--- OUTSIDE RECORDS SUMMARY | 2025-07-16 13:39 | XMS_ITS | Encounter Summary ---
Author Organization [facility] Healthcare Address [address] [place] [address] Care Team Providers Care Clutch Specialist Name Role Phone Blaise Yo MD Primary Care Provider [phone] Thierry Emanuel MD Unavailable [phone] Yontaan Rebolledo MD Unavailable [phone] Ernst Biggs MD Unavailable [phone] Yonatan Rebolledo MD Primary Care Provi audra Blaise Yo MD Primary Care Provider [phone] Susan Parkinson VOCATIONAL EXAMINER Unavailable Liberty Gil PT Unavailable [phone] Hermilo Tesfaye MD Unavailable Mery Taylor MD Unavailable Encounter Details Date Type Department Care Team (Late st Contact Info) Description 12/30/2020 Telephone [facility] [place] [address] Jeanne Galeana, RT Social History Tobacco Use Types Packs/Day Years Used Date Smoking Tobacco: Never Smokeless Tobacco: Former Chew Quit: 10/14/2020 Alcohol Use Standard Drinks/Week Comments Yes 10 [...] often do you attend chur ch or rastafarian services? Never 11/12/2020 Do you belong to any clubs o r organizations such as spiritism groups, unions, fraternal or athletic groups, or school groups? No 11/12/2020 How often do you attend meet ings of the clubs or organizations you belong to? Never 11/12/2020 Are you , , di vorced, , never , or living with a partner? 11/12/2020 Overall Financial Resource Strain (CARDIA) Answe r Date Recorded How hard is it for you to pa y for the very basics like food, housing, medical care, and heating? Not hard at all 11/12/2020 [facility] - Occupational Stress Questionnaire Answer Date [...] things needed for daily living? No 11/12/2020 Education Answer Date Recorded What is the [...] file Not on file Not on file documented as of this encounter Plan of Treatment Not on file documented as of this encounter Visit Diagnoses Not on filedocumented in this encounter Additional Health Concerns Infection Onset Date Last Indicated Resolved Time COVID: Suspected 01/27/2025 01/27/2025 01/27/2025 12:19 PM CDT documented as of this encounter Care Teams Clutch Specialist Relationship Specialty Start Date End Date Blaise Yo MD [address] [place] [address] PCP - General Internal Medicine 07/03/20 02/17/21 Yonatan Rebolledo MD [address] [place] [address] PCP - General 02/18/21 02/24/21 Blaise Yo MD [address] [place] [address] PCP - General 02/25/21 Thierry Emanuel MD [address] [place] [address] Referring Physician Urology 11/12/20 Yonatan Rebolledo MD [facility] [place] [address] Radiation Oncologist Radiation Oncology 12/17/20 Ernst Biggs MD [address] [place] [address] Consulting Physician Rheumatology 02/18/21 Susan Parkinson NP [address] [facility] [address] [place], [place] [id number] Nurse Practitioner Nurse Practitioner 06/30/21 [place] [address] [place] [address] Physical Therapist Physical Therapy 02/21/23 [place] [address] [place] [address] Radiation Oncologist Radiation Oncology 06/02/23 Mery Taylor MD [address] [place] [address] Endocrinology Diabetes & Metabolism 03/13/25 documented as of this encounter
--- OUTSIDE RECORDS SUMMARY | 2025-07-16 13:39 | XMS_ITS ---
Author Organization [facility] Address [address] [place] [address] Care Team Providers Care Insurance Solicitor Name Role Phone Thierry Emanuel MD Unavailable [phone] Ernst Biggs MD Unavailable [phone] Blaise Yo MD Primary Care Provider [phone] Susan Parkinson BEEF SPLITTER Unavailable Liberty Gil PT Unavailable [phone] Hermilo Tesfaye MD Unavailable [phone] Mery Taylor MD Unavailable Active Problems Problem Noted Date Diagnosed Date [...] reports he has a golf tournament in [place] on 09/08. Recommended monitoring for improvement between [...] 07/2021 Assessment & Plan (11/25/2021 1:24 PM TIPPLE BOSS): Negative hepatitis-B/C 03/25/2021 Negative T spot 07/2021 [...] (06/08/2021): Added automatically from request for surgery [id number] Rectal bleeding 06/08/2021 Overview (06/08/2021): Added automatically from request for surgery [id number] Abnormal urine color 04/13/2021 Assessment & Plan [...] Plan (03/11/2022 2:48 PM CDT): CDAI 23. Ray continues to have chronic joint complaints, which [...] needed. Assessment & Plan (11/25/2021 1:28 PM TIPPLE BOSS): CDAI 42. Since last visit, Jt has [...] (07/14/2020): Added automatically from request for surgery [id number] SOB (shortness of breath) Overview (02/01/2022): Chest [...] given his shortness breath with mild exertion. Current Treatment and Therapy Plans Leuprolide (LUPRON) for Radiation Oncology* Plan Start Date:07/22/2021 Plan Provider:Yonatan Rebolledo MD Linked Problems Prostate cancer (HCC) Treatment Medications leuprolide acetate (6 month) (LUPRON) syringe kit Past Treatment and Therapy Plans Specialty Infusion Treatment Plan Name Start Date Discontinue Date Treatment Medications Discontinue Reason Plan Provider Eligard Injection - 45 mg every 24 weeks 01/12/2021 07/13/2021 leuprolide (ELIGARD) Protocol Amendment/Change Yonatan Rebolledo MD Radiation Treatments * Course [id number] 03/11/2021 - 01/09/2022 Treatment Period Energy Fraction Dose Fractions Total Dose Plans Planned PELVIS 03/11/2021 - 01/09/2022 220 28 / 6,160 PROST BED BST 04/22/2021 - 01/09/2022 180 9 / 1,620 Reference Points Delivered [id number] 03/11/2021 - 01/09/2022 6,160 [id number] 04/22/2021 - 01/09/2022 1,620 Lifetime Dose Tracking * Chemical Lifetime Dose Automatic Entry Manual Entr y Fluoro Time 0.617 minutes 0.617 minutes 0 minutes DLP 3,437 mGycm 3,437 mGycm 0 mGycm
--- OUTSIDE RECORDS SUMMARY | 2025-07-16 13:39 | XMS_ITS | Encounter Summary ---
Author Organization [facility] Address [address] [place] [address] Phone Care Team Providers Care Electrician Elevator Maintenance Name Role Phone Thierry Emanuel MD Unavailable [phone] Yonatan Rebolledo MD Unavailable [phone] Ernst Biggs MD Unavailable [phone] Blaise Yo MD Primary Care Provider Susan Parkinson CARD BRUSHER Unavailable Liberty Gil PT Unavailable [phone] Hermilo Tesfaye MD Unavailable Mery Taylor MD Unavailable Encounter Details Date Type Department Care Team (Latest Contact Info) Description 08/15/2022 Orders Only [facility] SLEEP Scanning, Provider Social History Tobacco Use Types Packs/Day Years Used Date Smoking Tobacco: Never Smokeless Tobacco: Current Chew Last attempted to quit: 10/14/2020 Alcohol Use Standard Drinks/Week Comments Yes [...] often do you attend chur ch or mu-ism services? Never 11/12/2020 Do you belong to any clubs o r organizations such as judaism groups, unions, fraternal or athletic groups, or [...] and heating? Not hard at all 11/12/2020 [facility] [place] [facility] Occup[facility] ional Health - Occupational Stress [...] on file documented as of this encounter Procedures Procedure Name Priority Date/Time Associated Diagnosis Comments SLEEP LAB/STUDY - RESULT 08/15/2022 5:11 PM CDT documented in this encounter Results * SLEEP LAB/STUDY - RESULT (08/15/2022 5:11 PM CDT) us Provider Scanning Final Result documented in this encounter Visit Diagnoses Not on filedocumented in this encounter Additional Health Concerns Infection Onset Date Last Indicated Resolved Time COVID: Suspected 01/27/2025 01/27/2025 01/27/2025 12:19 PM CDT documented as of this encounter Care Teams Electrician Elevator Maintenance Relationship Specialty Start Date End Date Blaise Yo MD [address] [place] [address] PCP - General 02/25/21 Thierry Emanuel MD Referring Physician Urology 11/12/20 Yonatan Rebolledo MD Radiation Oncologist Radiation Oncology 12/17/20 Ernst Biggs [place] [address] Consulting Physician Rheumatology 02/18/21 Susan Parkinson NP [address] [facility] [address] [place], [place] [id number] Nurse Practitioner Nurse Practitioner 06/30/21 [place] [address] [place] [address] Physical Therapist Physical Therapy 02/21/23 [place] [address] [place] [address] Radiation Oncologist Radiation Oncology 06/02/23 Mery Taylor MD [address] [place] [address] Endocrinology Diabetes & Metabolism 03/13/25 documented as of this encounter
== END ==
LOC: ANHLAB 12:19
PROVIDERS: PCP Physician Assistant Medical; Visit Provider Plastic Surgery
DX: L72.3 Sebaceous cyst (principal)
CPT/HCPCS: 88305